=== PATIENT | male | born 1970 ===

== ENCOUNTER 2022-06-30 07:26 | Day surgery (SDC) | payer OTHER ==
[~2022-06-30 07:26] MED LIST: COZAAR25 MG; ZOLOFT20 MG/ML
== END 2022-06-30 12:55 | disposition home or self-care (01) ==
LOC: AMB-ENDOS 07:26
PROVIDERS: ATTEND Colon & Rectal Surgery
DX: D12.5 Benign neoplasm of sigmoid colon (principal); Z20.822 Contact with and (suspected) exposure to COVID-19; K57.30 Diverticulosis of large intestine without perforation or abscess without bleeding; I10 Essential (primary) hypertension; E03.9 Hypothyroidism, unspecified

== ENCOUNTER 2025-08-05 08:00 | Day surgery (SDC) | payer OTHER ==
[2025-08-05] MEDS ORDERED: MIDAZOLAM HCL 2 MG/2 ML VIAL IV ONE (08:30)
[2025-08-05] MEDS ORDERED: DIPHENHYDRAMINE HCL 50 MG/ML VIAL 1ML IV ONE (08:30)
[2025-08-05] MEDS ORDERED: fentaNYL CITRATE 50 MCG/ML AMPUL IV PUSH ONE (08:30)
[2025-08-05] MEDS ORDERED: ONDANSETRON HCL 2 MG/ML VIAL IV ONE (08:30)
== END 2025-08-05 09:35 | disposition home or self-care (01) ==
LOC: AMB-ENDOS 08:00
PROVIDERS: ATTEND Colon & Rectal Surgery
DX: D12.3 Benign neoplasm of transverse colon (principal); K63.5 Polyp of colon; K62.1 Rectal polyp; Z88.0 Allergy status to penicillin